=== PATIENT | female | born 1955 | race Caucasian/White ===

== ENCOUNTER 2018-02-22 14:51 | Inpatient (IN) | payer BC ==
[~2018-02-22] VITALS: Ht 167.6 cm; Wt 64.4 kg
[~2018-02-22 14:51] MED LIST: ASPIR-TRIN325 M1 PO; ATORVASTATIN 10 MG T; ATORVASTATIN 10 MG T PO; ATORVASTATIN CA10 MG PO; CENTRUM SILVER1 EAC3 PO; CHLORDIAZEPOXI1 EACH; GABAPENTIN300 MG; GABAPENTIN300 MG PO; LEVOTHYROXINE125 MCG PO; LEVOTHYROXINE75 MCG PO; LEXAPRO20 MG; LEXAPRO20 MG PO; LIBRAX, CLI1 CAPSULE PO; LISINOPRIL20 MG PO; LISINOPRIL40 MG PO; LITE COAT ASPI325 M1 PO; MELATONIN5 M1 PO; MELOXICAM15 MG; METOPROLOL SUCC25 MG; METOPROLOL SUCC25 MG PO; METOPROLOL SUCC50 MG PO; OMEPRAZOLE40 M1; OMEPRAZOLE40 M1 PO; PERCOCET 7.51 TABLET PO; PRAVASTATIN SOD10 MG; PRINIVIL40 MG; REQUIP1 MG PO; REQUIP2 MG PO; RESTORIL15 MG PO; SUPER B COMPLE150 MG PO; SYNTHROID150 MCG; SYNTHROID150 MCG PO; TOPAMAX100 MG
[2018-02-22 15:22] LABS: HEMATOCRIT 40.8 % (36.0-46.0); HEMOGLOBIN 13.8 G/DL (11.9-15.5); MCH 31.9 PG (29.0-34.0); MCHC 33.8 G/DL (30.0-36.0); MCV 94.2 FL (83-99); PLATELET COUNT 188 K/uL (156-360); RBC DIS.WIDTH-CV 13.9 % (11.8-14.6); RBC DIS.WIDTH-SD 47.4 % (39-53); RED BLOOD COUNT 4.33 M/uL (3.80-5.20); WHITE BLOOD COUNT 11.8 K/uL (4.1-10.2)
[2018-02-22 15:31] LABS: CHLORIDE 107 mEq/L (99-109); SODIUM 139 mEq/L (136-147)
[2018-02-22 15:33] LABS: GLUCOSE 109 mg/dL (70-99)
[2018-02-22 15:37] LABS: GFR ESTIMATE (CALCULATED) > 59 mL/min/
[2018-02-22 15:38] LABS: UREA NITROGEN (BUN) 9 mg/dL (9-23)
[2018-02-22 15:44] LABS: TROP-I INTERPRETATION NEGATIVE; TROPONIN-I < 0.01 ng/mL (0.0-0.30)
[2018-02-22] MEDS ORDERED: TOPIRAMATE50 MG PO (16:43)
[2018-02-22] MEDS ORDERED: PROBIOTIC1 EAC1 PO (16:43)
[2018-02-22] MEDS ORDERED: LIOTHYRONINE SO5 MCG PO (16:43)
[2018-02-22] MEDS ORDERED: BIOTIN5000 MC1 SL (16:44)
[2018-02-22] MEDS ORDERED: TEMAZEPAM30 MG PO (16:44)
[2018-02-22 19:31] VITALS: BP 124/75
[2018-02-22 20:27] LABS: TROP-I INTERPRETATION NEGATIVE; TROPONIN-I 0.01 ng/mL (0.0-0.30)
[2018-02-22 23:29] VITALS: BP 127/73
[2018-02-23 01:45] LABS: HEMATOCRIT 37.8 % (36.0-46.0); HEMOGLOBIN 13.1 G/DL (11.9-15.5); MCHC 34.7 G/DL (30.0-36.0); MCV 92.2 FL (83-99); RBC DIS.WIDTH-CV 13.7 % (11.8-14.6); RBC DIS.WIDTH-SD 46.5 % (39-53); WHITE BLOOD COUNT 12.6 K/uL (4.1-10.2)
[2018-02-23 02:01] LABS: CHLORIDE 103 mEq/L (99-109); POTASSIUM 3.6 mEq/L (3.7-5.4); SODIUM 135 mEq/L (136-147)
[2018-02-23 02:03] LABS: GLUCOSE 109 mg/dL (70-99)
[2018-02-23 02:07] LABS: CREATININE 0.8 mg/dL (0.6-1.3); GFR ESTIMATE (CALCULATED) > 59 mL/min/
[2018-02-23 02:08] LABS: UREA NITROGEN (BUN) 9 mg/dL (9-23)
[2018-02-23 02:09] LABS: TROP-I INTERPRETATION NEGATIVE; TROPONIN-I 0.01 ng/mL (0.0-0.30)
[2018-02-23 03:01] LABS: PLAT.SUFFICIENCY ADEQUATE; PLATELET COUNT 196 K/uL (156-360)
[2018-02-23 05:06] VITALS: BP 125/75
[2018-02-23 08:20] VITALS: BP 129/74
[2018-02-23 12:32] LABS: INTER. NORMALIZED RATIO 1.4
[2018-02-23 16:38] VITALS: BP 81/52
[2018-02-23 20:11] VITALS: BP 91/60
[2018-02-23 23:21] VITALS: BP 105/62
[2018-02-24] VITALS (7 sets, daily range): BP systolic 97–114; BP diastolic 58–64
[2018-02-24 05:31] LABS: HEMATOCRIT 36.3 % (36.0-46.0); MCH 31.1 PG (29.0-34.0); MCHC 33.1 G/DL (30.0-36.0); PLATELET COUNT 191 K/uL (156-360); RBC DIS.WIDTH-CV 13.6 % (11.8-14.6); RBC DIS.WIDTH-SD 46.6 % (39-53); RED BLOOD COUNT 3.86 M/uL (3.80-5.20); WHITE BLOOD COUNT 8.9 K/uL (4.1-10.2)
[2018-02-24 05:51] LABS: INTER. NORMALIZED RATIO 1.4
[2018-02-24 08:17] LABS: CHLORIDE 103 MEQ/L (99-109); CREATININE 0.9 MG/DL (0.6-1.3); GFR ESTIMATE (CALCULATED) > 59 mL/min/; POTASSIUM 3.5 MEQ/L (3.7-5.4); SODIUM 132 MEQ/L (136-147); UREA NITROGEN (BUN) 8 mg/dL (9-23)
[2018-02-24 08:20] LABS: GLUCOSE 80 mg/dL (70-99)
[2018-02-25 04:44] VITALS: BP 117/64
[2018-02-25 06:01] LABS: INTER. NORMALIZED RATIO 1.5
[2018-02-25 06:18] LABS: CHLORIDE 108 MEQ/L (99-109); GFR ESTIMATE (CALCULATED) > 59 mL/min/; GLUCOSE 86 mg/dL (70-99); POTASSIUM 4.1 MEQ/L (3.7-5.4); UREA NITROGEN (BUN) 5 mg/dL (9-23)
[2018-02-25 06:35] LABS: SODIUM 139 MEQ/L (136-147)
[2018-02-25 07:58] VITALS: BP 110/58
[2018-02-25 11:35] VITALS: BP 101/62
[2018-02-25] MEDS ORDERED: LEVOFLOXACIN750 MG PO (12:07)
[2018-02-25] MEDS ORDERED: LOVENOX60 MG/0.6 SC (12:14)
[2018-02-25] MEDS ORDERED: COUMADIN5 MG PO (12:14)
== END 2018-02-25 13:55 | disposition home or self-care (01) | DRG 175 ==
LOC: EME 14:51 → EDOF 16:23 → ENRESERV 16:25 → EDOF 17:42 → ENRESERV 17:43 → 4EAST 19:26
PROVIDERS: Hospitalist; Physician Assistant
DX: I26.99 Other pulmonary embolism without acute cor pulmonale (principal); D68.52 Prothrombin gene mutation; J15.9 Unspecified bacterial pneumonia; I95.2 Hypotension due to drugs; T40.605A Adverse effect of unspecified narcotics, initial encounter; E78.5 Hyperlipidemia, unspecified; F17.210 Nicotine dependence, cigarettes, uncomplicated; I10 Essential (primary) hypertension; I25.10 Atherosclerotic heart disease of native coronary artery without angina pectoris; K21.9 Gastro-esophageal reflux disease without esophagitis; M79.7 Fibromyalgia; E89.0 Postprocedural hypothyroidism; F41.9 Anxiety disorder, unspecified; F32.9 Major depressive disorder, single episode, unspecified; Z96.659 Presence of unspecified artificial knee joint; Z96.649 Presence of unspecified artificial hip joint; Z85.850 Personal history of malignant neoplasm of thyroid; Z86.718 Personal history of other venous thrombosis and embolism; Z88.6 Allergy status to analgesic agent; Z98.1 Arthrodesis status
CPT/HCPCS: 71045; 71046; 71275; 80048; 83880; 84484; 85027; 85610; 93005; 93306; 93970; 99281; 99285; J1170; J1650; J1885; J2270; J2405; J7030